=== PATIENT | male | born 1985 | race African-American/Black ===

== ENCOUNTER 2023-05-22 05:50 | Emergency (ER) | payer OTHER ==
[~2023-05-22] VITALS: Ht 167.6 cm; Wt 68.0 kg
[2023-05-22 06:02] VITALS: BP 107/64; PULSE 58; RESP 18; TEMP 97.3; O2SAT 99
[2023-05-22 07:01] LABS: FLU A ANTIGEN negative (NEGATIVE); FLU B ANTIGEN NEGATIVE (NEGATIVE)
[2023-05-22 07:02] LABS: COVID19 ANTIGEN SOFIA FIA POSITIVE (NEGATIVE)
[2023-05-22] MEDS ORDERED: NIRM1TAB5 PO (07:14)
[2023-05-22 08:09] VITALS: BP 107/67; PULSE 74; RESP 17; O2SAT 98
== END 2023-05-22 08:09 | disposition home or self-care (01) ==
LOC: MED 05:50
DX: U07.1 COVID-19 (principal); B34.9 Viral infection, unspecified; J34.89 Other specified disorders of nose and nasal sinuses; R09.81 Nasal congestion; R05.9 Cough, unspecified; R50.9 Fever, unspecified; R68.83 Chills (without fever); M79.10 Myalgia, unspecified site; Z79.899 Other long term (current) drug therapy
CPT/HCPCS: 99283

== ENCOUNTER 2023-11-24 17:05 | Emergency (ER) | payer OTHER ==
[~2023-11-24] VITALS: Ht 167.6 cm; Wt 65.8 kg
[~2023-11-24 17:05] MED LIST: NIRM1TAB5 PO
[2023-11-24 17:07] VITALS: BP 120/81; PULSE 64; RESP 18; TEMP 97.8; O2SAT 100
[2023-11-24] MEDS: KETOROLAC 30 MG/ML VIAL IM ONE (17:30)
[2023-11-24] MEDS: ACETAMINOPHEN 325 MG TAB PO ONE (17:31)
[2023-11-24] MEDS ORDERED: TRANEXAMIC ACID 1,000 MG/10 ML VIAL ONE (18:03)
[2023-11-24] MEDS ORDERED: IBUP-2213 PO (18:29)
== END 2023-11-24 18:36 | disposition home or self-care (01) ==
LOC: MED 17:05
DX: S96.911A Strain of unspecified muscle and tendon at ankle and foot level, right foot, initial encounter (principal); Z79.899 Other long term (current) drug therapy; X58.XXXA Exposure to other specified factors, initial encounter; Y92.89 Other specified places as the place of occurrence of the external cause; Y93.89 Activity, other specified; Y99.8 Other external cause status
CPT/HCPCS: 73630; 96372; 99283; J1885; J3490